=== PATIENT | female | born 1960 | race African-American/Black ===

== ENCOUNTER 2016-11-25 20:00 | Emergency (ER) | payer OTHER ==
[2016-11-25 20:08] VITALS: BMI 37.1
[2016-11-25] MEDS ORDERED: SODIUM CHLORIDE 1,000 ML IV STA (20:49)
[2016-11-25] MEDS ORDERED: ONDANSETRON 4 MG/2 ML VIAL IVPUSH ONE (20:49)
[2016-11-25] MEDS ORDERED: morphine CARPU-JECT 4 MG/1 ML DISP.SYRIN IVPUSH ONE (20:49)
[2016-11-25] MEDS ORDERED: ONDANSETRON 4 MG/2 ML VIAL ONE (20:58)
[2016-11-25] MEDS ORDERED: morphine CARPU-JECT 4 MG/1 ML DISP.SYRIN ONE (20:58)
--- NOTE | 2016-11-25 21:21 | PDOC ---
History of Present Illness - General Chief Complaint: Pain Stated Complaint: PCP SENT/PAIN, ACUTE Time Seen by Provider: 11/25/16 20:37 History Source: Patient Exam Limitations: No Limitations - History of Present Illness Initial Comments: 11/25/16 21:02 56yo Female patient w/ PmHx: DVT, DM, Hypothyroidism, Gout, HTN, presents to ED c/o chest pain and abdominal pain. Patient states this past Wednesday, she attending her sons wedding, and while exiting an elevator, she was walking on a marble floor, slipped and landed on her back. Patient was transported to a local hospital where x-ray's were taken and negative for fractures. Patient states she was diagnosed with contusions of hip and back. Patient followed up with Dr. Redmond, who is concerned with Liver or Splenic laceration due to continued abdominal and chest pains patient is experiencing. Patient currently takes Coumadin po for hx DVTs. She denies diff breathing, weakness, n/v/d, confusion, disorientation, hematuria, dysuria, rectal bleeding or any other complaints at this time. Occurred: reports: other (3 days ago.) Severity: reports: moderate Pain Location: reports: abdomen, back, chest Method of Injury: Yes: fall Modifying Factors: improves with: pain medication, rest Loss of Consciousness: no loss of consciousness Associated Symptoms (Fall): denies symptoms Past History - Travel Traveled outside of the country in the last 30 days: No Close contact w/someone who was outside of country & ill: No - Past Medical History Allergies/Adverse Reactions: Allergies Allergy/AdvReac Type Severity Reaction Status Date / Time No Known Allergies Allergy Verified 11/25/16 20:08 Home Medications: Ambulatory Orders Allopurinol [Zyloprim -] 100 mg PO DAILY 07/04/15 Cholecalciferol (Vitamin D3) [Vitamin D3] 1,000 unit PO DAILY 07/04/15 Levothyroxine [Synthroid -] 125 mcg PO DAILY 07/04/15 Lisinopril [Prinivil -] 20 mg PO DAILY 07/04/15 Metformin HCl [Metformin HCl ER] 500 mg PO DAILY 07/04/15 Nebivolol HCl [Bystolic] 10 mg PO DAILY 07/04/15 Sitagliptin Phosphate [Januvia] 100 mg PO DAILY 07/04/15 Warfarin Na [Coumadin -] 5 mg PO DAILY 07/04/15 Anemia: No Asthma: No Cancer: No Cardiac Disorders: Yes CVA: No COPD: Yes CHF: No DVT: Yes Dementia: No Diabetes: Yes GI Disorders: Yes (DIVERTICULITIS) Disorders: No HTN: Yes Hypercholesterolemia: Yes Liver Disease: No Seizures: No Thyroid Disease: Yes (HYPOTHYROID) Lung CA: No (BI-LATERAL LUNG NODULES) Other medical history: gout, dvt - Surgical History Abdominal Surgery: No Appendectomy: No Cardiac Surgery: No Cholecystectomy: No Lung Surgery: (BILAT LUNG NODULES) Neurologic Surgery: No Orthopedic Surgery: No - Immunization History Immunization Up to Date: Yes - Psycho/Social/Smoking Cessation Hx Suicidal Ideation: No Smoking History: Never smoked Have you smoked in the past 12 months: No If you are a former smoker, when did you quit?: 30+ years Hx Alcohol Use: Yes (occasional) Drug/Substance Use Hx: No Substance Use Type: None Hx Substance Use Treatment: No Trauma Specific PMHX - Complaint Specific PMHX Arthritis: No Back Injury: No Neck Injury: No Hx Sacro Iliac Joint Dysfunction: No Review of Systems - Review of Systems Able to Perform ROS?: Yes Is the patient limited Iraqi proficient: No Constitutional: No: Chills, Fever Respiratory: No: Shortness of Breath, Stridor, Wheezing Cardiac (ROS): Yes: Chest Pain. No: Lightheadedness, Palpitations, Syncope, Chest Tightness ABD/GI: Yes: Other (Abdominal Pain RUQ ). No: Abdominal Distended, Nausea, Poor Appetite, Poor Fluid Intake, Rectal Bleeding, Vomiting, Abdominal cramping : No: Dysuria, Hematuria Musculoskeletal: Yes: Back Pain, Joint Pain Integumentary: No: Bruising, Erythema, Rash Neurological: No: Headache, Tremors, Weakness, Dizziness Hematologic/Lymphatic: Yes: Blood Clots, Easy Bleeding (On Coumadin) All Other Systems: Reviewed and Negative *Physical Exam - Vital Signs Last Vital Signs Temp Pulse Resp BP Pulse Ox 98.7 F 57 L 18 184/87 98 11/25/16 20:02 11/25/16 20:02 11/25/16 20:02 11/25/16 20:02 11/25/16 20:02 - Physical Exam General Appearance: Yes: Nourished, Appropriately Dressed, Mild Distress. No: Apparent Distress, Moderate Distress, Severe Distress Neck: positive: Trachea midline, Supple. negative: Normal Thyroid, Stridor, Lymphadenopathy (R), Lymphadenopathy (L) Respiratory/Chest: positive: Lungs Clear, Normal Breath Sounds. negative: Chest Tender, Respiratory Distress, Accessory Muscle Use, Labored Respiration, Rapid RR, Crackles, Stridor, Wheezing Cardiovascular: positive: Bradycardia Gastrointestinal/Abdominal: positive: Normal Bowel Sounds, Tender, Soft, Tenderness (+Tenderness to RUQ radiating to LUQ). negative: Distended, Guarding , Rebound Musculoskeletal: positive: Normal Inspection. negative: CVA Tenderness Extremity: positive: Normal Capillary Refill, Normal Inspection, Normal Range of Motion. negative: Pedal Edema, Swelling, Calf Tenderness, Erythema, Inflammation Integumentary: positive: Normal Color, Dry, Warm Neurologic: positive: home care attendant II-XII NML intact, Fully Oriented, Alert, Normal Mood/ Affect, Normal Response, Motor Strength 09/25 ED Treatment Course - LABORATORY CBC & Chemistry Diagram: 11/25/16 21:20 11/25/16 23:39 - RADIOLOGY Radiology Studies Ordered: Category Date Time Status ABDOMEN & PELVIS CT WITH CONTR [CT] Stat CT Scan 11/25/16 20:[address] WITH CONTRAST [CT] Stat CT Scan 11/25/16 20:46 Ordered *DC/Admit/Observation/Transfer Diagnosis at time of Disposition: Musculoskeletal pain Fall Qualifiers: Encounter type: initial encounter Qualified Code(s): W19.XXXA - Unspecified fall, initial encounter - Discharge Dispostion Disposition: HOME Condition at time of disposition: Stable Admit: No - Referrals Referrals: Mehdi Redmond MD [Primary Care Provider] - - Patient Instructions Printed Discharge Instructions: DI for Musculoskeletal Pain, How to Prevent Falls Additional Instructions: FOLLOW UP WITH DR. Redmond. Call to schedule appointment. Continue taking Over the counter medications as ordered. Return if symptoms worsen or any concerns for further evaluation. Print Language: BURKINAN - Post Discharge Activity Work/School Note: Back to Work
[2016-11-25 21:28] LABS: BASOPHIL 0.9 % (0-2.0); EOSINOPHIL 2.4 % (0-4.5); MCH 25.9 pg (25.7-33.7); MCHC 32.5 g/dl (32.0-36.0); MEAN CELL VOLUME 79.9 fl (80-96); MEAN PLT VOLUME 7.6 fl (7.5-11.1); NEUTROPHILS 48.7 % (42.8-82.8); PLATELET COUNT 234 K/MM3 (134-434); WHITE BLOOD COUNT 6.8 K/mm3 (4.0-10.0)
[2016-11-25] MEDS ORDERED: ACETAMINOPHEN 325 MG TABLET (FP) PO ONE (21:37)
--- NOTE | 2016-11-25 21:43 | PDOC ---
*Physical Exam - Vital Signs Last Vital Signs Temp Pulse Resp BP Pulse Ox 98.7 F 57 L 18 184/87 98 11/25/16 20:02 11/25/16 20:02 11/25/16 20:02 11/25/16 20:02 11/25/16 20:02 ED Treatment Course - LABORATORY CBC & Chemistry Diagram: 11/25/16 21:20 11/25/16 23:39 - ADDITIONAL ORDERS Additional order review: Laboratory Results 11/25/16 21:35 Urine HCG, Qual Negative 11/25/16 21:20 RBC 4.97 MCV 79.9 L MCHC 32.5 RDW 16.0 H MPV 7.6 Neutrophils % 48.7 Lymphocytes % 39.2 Monocytes % 8.8 Eosinophils % 2.4 Basophils % 0.9 - Medications Given in the ED: ED Medications Discontinued Medications Generic Name Dose Route Start Last Admin Trade Name Freq PRN Reason Stop Dose Admin Morphine Sulfate 4 mg 11/25/16 20:49 11/25/16 21:19 Morphine Injection - IVPUSH 11/25/16 20:50 Not Given ONCE ONE Ondansetron HCl 4 mg 11/25/16 20:49 11/25/16 21:19 Zofran Injection IVPUSH 11/25/16 20:50 Not Given ONCE ONE Medical Decision Making - Medical Decision Making 11/25/16 21:43 agree with care from JI Parker *DC/Admit/Observation/Transfer Diagnosis at time of Disposition: Musculoskeletal pain, Fall - Discharge Dispostion Disposition: HOME Condition at time of disposition: Stable - Prescriptions Prescriptions: Methocarbamol [Robaxin -] 500 mg PO TID PRN #21 tablet PRN Reason: Back Pain - Referrals Referrals: Mehdi Redmond MD [Primary Care Provider] - - Patient Instructions Printed Discharge Instructions: How to Prevent Falls, DI for Musculoskeletal Pain Additional Instructions: FOLLOW UP WITH DR. Redmond. Call to schedule appointment. Continue taking Over the counter medications as ordered. Return if symptoms worsen or any concerns for further evaluation. Print Language: SERBIAN - Post Discharge Activity Work/School Note: Back to Work
[2016-11-25] MEDS ORDERED: ACETAMINOPHEN 325 MG TABLET (FP) ONE (21:45)
[2016-11-25 22:19] LABS: INR 2.39 (0.82-1.09); PROTHROMBIN TIME (PATIENT) 26.8 SEC (9.98-11.88)
[2016-11-25 22:22] LABS: ACTIVATED PTT 50.1 SECONDS (26.9-34.4)
[2016-11-25 22:24] LABS: URINE APPEARANCE SLCLOUDY; URINE BILIRUBIN NEGATIVE (NEGATIVE); URINE BLOOD NEGATIVE (NEGATIVE); URINE COLOR LTYELLOW; URINE GLUCOSE (UA) NEGATIVE (NEGATIVE); URINE KETONE NEGATIVE (NEGATIVE); URINE LEUK ESTERASE TRACE (NEGATIVE); URINE NITRITE NEGATIVE (NEGATIVE); URINE PROTEIN NEGATIVE (NEGATIVE); URINE UROBILINOGEN NEGATIVE E.U./dl (0.2-1.0)
[2016-11-25 22:26] LABS: URINE BACTERIA MANY /hpf (NONE SEEN); URINE MUCUS RARE; URINE RBC <1 /hpf (0-3); URINE WBC 2 /hpf (3-5)
[2016-11-26 00:22] LABS: ALBUMIN 3.8 g/dl (3.4-5.0); ALK PHOS 99 U/L (45-117); ANION GAP 8 (8-16); BILIRUBIN,TOTAL 0.4 mg/dL (0.2-1.0); CALCIUM 8.7 mg/dL (8.5-10.1); CO2 28 mmol/L (21-32); CREATININE 0.6 mg/dL (0.55-1.02); GLUCOSE,RANDOM 122 mg/dL (74-106); SGOT/AST 26 U/L (15-37); SGPT/ALT 36 U/L (12-78); TOT PROT 7.2 g/dl (6.4-8.2)
[2016-11-26 01:04] LABS: TROPONIN I < 0.02 ng/ml (0.00-0.05)
[2016-11-26 05:09] VITALS: BP 152/71; PULSE 76; TEMP 98.2
== END 2016-11-26 05:09 | disposition home or self-care (01) ==
LOC: JER 20:00
PROC: 3E0337Z Introduction of Electrolytic and Water Balance Substance into Peripheral Vein, Percutaneous Approach (ICD-10-PCS; principal; 2016-11-25)
DX: M79.1 Myalgia (principal); W01.0XXA Fall on same level from slipping, tripping and stumbling without subsequent striking against object, initial encounter; Y93.01 Activity, walking, marching and hiking; Y92.511 Restaurant or cafe as the place of occurrence of the external cause; E11.9 Type 2 diabetes mellitus without complications; E03.9 Hypothyroidism, unspecified; M10.9 Gout, unspecified; I10 Essential (primary) hypertension; I82.409 Acute embolism and thrombosis of unspecified deep veins of unspecified lower extremity; Z79.01 Long term (current) use of anticoagulants; Z79.84 Long term (current) use of oral hypoglycemic drugs
CPT/HCPCS: 36415; 71260-TC; 74177-TC; 80053; 81003; 81015; 82550; 82553; 84484; 84703; 85025; 85610; 85730; 99283-25

== ENCOUNTER 2017-04-26 16:19 | Emergency (ER) | payer OTHER ==
--- NOTE | 2017-04-26 16:24 | PDOC ---
Rapid Medical Evaluation Time Seen by Provider: 04/26/17 16:20 Medical Evaluation: Allergies Allergy/AdvReac Type Severity Reaction Status Date / Time No Known Allergies Allergy Verified 11/25/16 20:08 04/26/17 16:21 I have performed a brief in person evaluation of this patient. The patient presents with chief complaint of : left side chest discomfort started this am constant worse with movement, pt takes coumadin for DVT 3yrs ago. DM, HTN, hyperthyroid , Gout , partial hysterectomy, Pertinent PE findings: pain to left side under axila and breast reproduced with leaning forward and with movement I have ordered the following: EKG, labs, The patient will proceed to the ER for further evaluation.
[2017-04-26 16:28] VITALS: BP 204/111; PULSE 70; TEMP 98; BMI 37.1
[2017-04-26 17:16] LABS: BASOPHIL 0.6 % (0-2.0); EOSINOPHIL 2.4 % (0-4.5); MCH 26.6 pg (25.7-33.7); MCHC 32.9 g/dl (32.0-36.0); MEAN CELL VOLUME 80.9 fl (80-96); MEAN PLT VOLUME 7.8 fl (7.5-11.1); NEUTROPHILS 45.7 % (42.8-82.8); PLATELET COUNT 268 K/MM3 (134-434); RDW 15.3 % (11.6-15.6)
[2017-04-26] MEDS ORDERED: ACETAMINOPHEN 500 MG TABLET (FP) PO STA (17:23)
--- NOTE | 2017-04-26 17:23 | PDOC ---
History of Present Illness - General History Source: Patient Exam Limitations: No Limitations <Jaida Cardozo - Last Filed: 04/26/17 17:43> <Jessica Cabezas - Last Filed: 04/28/17 01:09> - General Chief Complaint: Chest Pain Stated Complaint: CHEST PAIN Time Seen by Provider: 04/26/17 16:20 - History of Present Illness Initial Comments: 04/26/17 17:43 The patient is a 57 year old female, with a significant past medical history of HTN, HLD, Hypothyroidism, Gout, hx of DVT (on Coumadin), Diverticulitis who presents to the emergency department with chest pain today. Patient reports routine INR check this morning at [facility] when she experienced sudden onset of chest pain this morning. Patient reports L sided substernal chest pain, 6/10 in severity, squeezing and achy, nonradiating with no associated symptoms. Patient reports pain is exacerbated upon positional changes however denies any alleviating factors. Patient reports taking tylenol however denies any relief. Patient also notes receiving PRP shots on her L side for her torn labrum. Patient denies headache or dizziness. Patient denies fever, chills, abdominal pain, nausea, vomit, diarrhea or constipation. Patient denies dysuria, frequency , urgency or hematuria. Patient denies sick contacts or recent travel. Allergies: NKA Past surgical history: Partial hysterectomy. Partial thyroidectomy, Lung nodule removal Social history: Former smoker Hem/Onc: Garth Endo: Nyla (Jaida Cardozo) Past History <Jaida Cardozo - Last Filed: 04/26/17 17:43> - Past Medical History Anemia: No Asthma: No Cancer: No Cardiac Disorders: Yes CVA: No COPD: Yes CHF: No DVT: Yes Dementia: No Diabetes: Yes GI Disorders: Yes (DIVERTICULITIS) Disorders: No HTN: Yes Hypercholesterolemia: Yes Liver Disease: No Seizures: No Thyroid Disease: Yes (HYPOTHYROID) Lung CA: (BI-LATERAL LUNG NODULES) Other medical history: GOUT - Surgical History Abdominal Surgery: No Appendectomy: No Cardiac Surgery: No Cholecystectomy: No Lung Surgery: (BILAT LUNG NODULES) Neurologic Surgery: No Orthopedic Surgery: No - Immunization History Immunization Up to Date: Yes - Suicide/Smoking/Psychosocial Hx Smoking History: Former smoker Have you smoked in the past 12 months: No If you are a former smoker, when did you quit?: 30+ years Information on smoking cessation initiated: No Hx Alcohol Use: Yes (occasional) Drug/Substance Use Hx: No Substance Use Type: None Hx Substance Use Treatment: No <Jessica Cabezas - Last Filed: 04/28/17 01:09> - Past Medical History Allergies/Adverse Reactions: Allergies Allergy/AdvReac Type Severity Reaction Status Date / Time No Known Allergies Allergy Verified 04/26/17 16:21 Home Medications: Ambulatory Orders Allopurinol [Zyloprim -] 100 mg PO DAILY 07/04/15 Cholecalciferol (Vitamin D3) [Vitamin D3] 1,000 unit PO DAILY 07/04/15 Levothyroxine [Synthroid -] 125 mcg PO DAILY 07/04/15 Lisinopril [Prinivil -] 20 mg PO DAILY 07/04/15 Metformin HCl [Metformin HCl ER] 500 mg PO DAILY 07/04/15 Nebivolol HCl [Bystolic] 10 mg PO DAILY 07/04/15 Sitagliptin Phosphate [Januvia] 100 mg PO DAILY 07/04/15 Warfarin Na [Coumadin -] 5 mg PO DAILY 07/04/15 Methocarbamol [Robaxin -] 500 mg PO TID PRN #21 tablet 11/26/16 Cardiac Specific PMH - Complaint Specific PMHX Pacemaker: No <Jessica Cabezas - Last Filed: 04/28/17 01:09> Review of Systems - Review of Systems Able to Perform ROS?: Yes <Jaida Cardozo - Last Filed: 04/26/17 17:43> <Jessica Cabezas - Last Filed: 04/28/17 01:09> - Review of Systems Comments:: 04/26/17 17:43 CONSTITUTIONAL: Absent: fever, chills, diaphoresis, generalized weakness, malaise, loss of appetite HEENT: Absent: rhinorrhea, nasal congestion, throat pain, throat swelling, difficulty swallowing, mouth swelling, ear pain, eye pain, visual Changes CARDIOVASCULAR: +chest pain. Absent: chest pain, syncope, palpitations, irregular heart rate, lightheadedness , peripheral edema RESPIRATORY: Absent: cough, shortness of breath, dyspnea with exertion, orthopnea, wheezing, stridor, hemoptysis GASTROINTESTINAL: Absent: abdominal pain, abdominal distension, nausea, vomiting, diarrhea, constipation, melena, hematochezia GENITOURINARY: Absent: dysuria, frequency, urgency, hesitancy, hematuria, flank pain, genital pain MUSCULOSKELETAL: Absent: myalgia, arthralgia, joint swelling SKIN: Absent: rash, itching, pallor HEMATOLOGIC/IMMUNOLOGIC: Absent: easy bleeding, easy bruising, lymphadenopathy, frequent infections ENDOCRINE: Absent: unexplained weight gain, unexplained weight loss, heat intolerance, cold intolerance NEUROLOGIC: Absent: headache, focal weakness or paresthesias, dizziness, unsteady gait, seizure, mental status changes, bladder or bowel incontinence PSYCHIATRIC: Absent: anxiety, depression, suicidal or homicidal ideation, hallucinations. (Jaida Cardozo) *Physical Exam <Jaida Cardozo - Last Filed: 04/26/17 17:43> <Jessica Cabezas - Last Filed: 04/28/17 01:09> - Vital Signs Last Vital Signs Temp Pulse Resp BP Pulse Ox 98 F 70 19 204/111 96 04/26/17 16:21 04/26/17 16:21 04/26/17 16:21 04/26/17 16:21 04/26/17 17:55 - Physical Exam Comments: 04/26/17 17:43 GENERAL: +Obese. Well developed, well nourished. Awake and alert. No acute distress. HEENT: Normocephalic, atraumatic. PERRLA, EOMI. No conjunctival pallor. Sclera are non- icteric. Moist mucous membranes. Oropharynx is clear. NECK: Supple. Full ROM. No JVD. Carotid pulses 2+ and symmetric, without bruits. No thyromegaly. No lymphadenopathy. CARDIOVASCULAR: Regular rate and rhythm. No murmurs, rubs, or gallops. Distal pulses are 2+ and symmetric. PULMONARY: No evidence of respiratory distress. Lungs clear to auscultation bilaterally. No wheezing, rales or rhonchi. ABDOMINAL: Soft. Non-tender. Non-distended. No rebound or guarding. No organomegaly. Normoactive bowel sounds. MUSCULOSKELETAL Normal range of motion at all joints. No bony deformities or tenderness. No CVA tenderness. EXTREMITIES: No cyanosis. No clubbing. No edema. No calf tenderness. SKIN: Warm and dry. Normal capillary refill. No rashes. No jaundice. NEUROLOGICAL: Alert, awake, appropriate. Cranial nerves 2-12 intact. No deficits to light touch and temperature in face, upper extremities and lower extremities. No motor deficits in the in face, upper extremities and lower extremities. Normoreflexic in the upper and lower extremities. Normal speech. Toes are down-going bilaterally. Gait is normal without ataxia. PSYCHIATRIC: Cooperative. Good eye contact. Appropriate mood and affect. (Jaida Cardozo) ED Treatment Course - LABORATORY CBC & Chemistry Diagram: 04/26/17 17:02 04/26/17 17:02 <Jaida Cardozo - Last Filed: 04/26/17 17:43> - LABORATORY CBC & Chemistry Diagram: 04/26/17 17:02 04/26/17 Unknown <Jessica Cabezas - Last Filed: 04/28/17 01:09> - ADDITIONAL ORDERS Additional order review: 04/26/17 17:02 RBC 5.17 MCV 80.9 MCHC 32.9 RDW 15.3 MPV 7.8 Neutrophils % 45.7 Lymphocytes % 41.1 H Monocytes % 10.2 Eosinophils % 2.4 Basophils % 0.6 - Medications Given in the ED: ED Medications Discontinued Medications Generic Name Dose Route Start Last Admin Trade Name Freq PRN Reason Stop Dose Admin Acetaminophen 975 mg 04/26/17 17:23 04/26/17 17:47 Tylenol - PO 04/26/17 17:24 975 mg ONCE STA Administration Medical Decision Making <Jaida Cardozo - Last Filed: 04/26/17 17:43> <Jessica Cabezas - Last Filed: 04/28/17 01:09> - Medical Decision Making 04/28/17 01:07 57 yo female was getting her blood drawn at outpt lab in hospital when she told someone she was having left sided chest discomfort that increased w mvmt -ekg did not show any acute ischemia -she has 2 sets of negative cardiac enzymes -discharged home (Jessica Cabezas) *DC/Admit/Observation/Transfer <Jaida Cardozo - Last Filed: 04/26/17 17:43> <Jessica Cabezas - Last Filed: 04/28/17 01:09> Diagnosis at time of Disposition: Chest pain Qualifiers: Chest pain type: unspecified Qualified Code(s): R07.9 - Chest pain, unspecified - Discharge Dispostion Disposition: HOME Condition at time of disposition: Stable - Referrals Referrals: Mehdi Redmond MD [Primary Care Provider] - - Patient Instructions Printed Discharge Instructions: DI for Atypical Chest Pain Additional Instructions: please follow up with your regular physician - Attestations Scribe Attestion: 04/26/17 17:44 Documentation prepared by Jaida Cardozo, acting as medical front desk coordinator for Jessica Cabezas MD (Jaida Cardozo)
[2017-04-26] MEDS ORDERED: ACETAMINOPHEN 325 MG TABLET (FP) ONE (17:47)
[2017-04-26 19:07] LABS: INR 2.28 (0.82-1.09); PROTHROMBIN TIME (PATIENT) 25.8 SEC (9.98-11.88)
[2017-04-26 19:21] LABS: ALBUMIN 4.1 g/dl (3.4-5.0); ANION GAP 8 (8-16); BILIRUBIN,TOTAL 0.2 mg/dL (0.2-1.0); CALCIUM 9.4 mg/dL (8.5-10.1); CO2 29 mmol/L (21-32); CREATININE 0.7 mg/dL (0.55-1.02); GLUCOSE,RANDOM 86 mg/dL (74-106); SGOT/AST 18 U/L (15-37); SGPT/ALT 32 U/L (12-78); TOT PROT 7.9 g/dl (6.4-8.2)
[2017-04-26 19:24] LABS: ALK PHOS 111 U/L (45-117); CPK 140 IU/L (26-192); TROPONIN I < 0.02 ng/ml (0.00-0.05)
[2017-04-26 23:46] LABS: CPK 135 IU/L (26-192); TROPONIN I < 0.02 ng/ml (0.00-0.05)
--- NOTE | 2017-04-28 07:54 | EKG ---
Test Reason : Blood Pressure : / mmHG Vent. Rate : 056 BPM Atrial Rate : 056 BPM P-R Int : 204 ms QRS Dur : 090 ms QT Int : 398 ms P-R-T Axes : 060 017 004 degrees QTc Int : 384 ms SINUS BRADYCARDIA OTHERWISE NORMAL ECG WHEN COMPARED WITH ECG OF 04-JUL-2015 16:30, VENT. RATE HAS DECREASED BY 33 BPM Confirmed by MD Funes Daniel ([id number]) on 04/27/2017 2:57:48 PM Also confirmed by MD Funes Daniel ([id number]), news editor ALEXANDRIA MATAMOROS ([id number]) on 04/28/2017 7:53:50 AM Referred By: Confirmed By:Alexandria Funes MD
== END 2017-04-27 01:52 | disposition home or self-care (01) ==
LOC: JER 16:19
DX: R07.9 Chest pain, unspecified (principal); E03.9 Hypothyroidism, unspecified; I10 Essential (primary) hypertension; E78.5 Hyperlipidemia, unspecified; Z86.718 Personal history of other venous thrombosis and embolism; Z79.01 Long term (current) use of anticoagulants
CPT/HCPCS: 36415; 71020-TC; 80053; 82550; 84484; 85025; 85610; 86850; 86900; 86901; 93005; 93010; 99285-25

== ENCOUNTER 2018-06-08 15:44 | Emergency (ER) | payer OTHER ==
[2018-06-08 16:03] VITALS: BP 140/84; PULSE 61; TEMP 98.1; BMI 37.1
--- NOTE | 2018-06-08 16:04 | PDOC ---
Rapid Medical Evaluation Chief Complaint: Pain Medical Evaluation: Allergies Allergy/AdvReac Type Severity Reaction Status Date / Time No Known Allergies Allergy Verified 04/26/17 16:21 Vital Signs Temp Pulse Resp BP Pulse Ox 98.1 F 61 16 140/84 100 06/08/18 15:59 06/08/18 15:59 06/08/18 15:59 06/08/18 15:59 06/08/18 15:59 I have performed a brief in-person evaluation of this patient. The patient presents with a chief complaint of: c/o dull/aching epigastric pain from 3 days ago; denies fever, vomiting, diarrhea, urinary complaints Pertinent physical exam findings: In NAD, mild epigastric tenderness I have ordered the following: Labs, EKG The patient will proceed to the ED for further evaluation. 06/08/18 16:03 Discharge Disposition - Discharge Dispostion Condition at time of disposition: Stable - Referrals Referrals: Mehdi Redmond MD [Primary Care Provider] - - Patient Instructions - Post Discharge Activity
--- NOTE | 2018-06-08 17:16 | PDOC ---
Attending Attestation - Resident Resident Name: CharissaDat - ED Attending Attestation I have performed the following: I have examined & evaluated the patient, The case was reviewed & discussed with the resident, I agree w/resident's findings & plan, Exceptions are as noted - Medical Decision Making 06/08/18 17:15 I, Dr. Cori Martinez, DO, attest that this document has been prepared under my direction and personally reviewed by me in its entirety. I further attest, that it accurately reflects all work, treatment, procedures and medical decision -making performed by me. 06/08/18 18:45 58yo female with 4 days of diffuse abd pain -no associated N/V/D -denies dysuria -sent from Dr. Redmond for eval -hx of gallbladder polyps -no f/c -will send labs -abd is diffusely ttp, will send for ct abd/pelvis -tylenol for pain 06/08/18 19:04 labs reviewed no elevated wbc pt to ct 06/08/18 20:28 ct shows possible duodenitis vs thickening concerning for neoplastic disease pt will need outpt GI follow up will start PPI for duodenitis will give copy of CT report call placed to Dr. Redmond to update him pt stable for outpt follow up for furhter eval of the abnl ct findings <Cori Martinez - Last Filed: 06/08/18 20:28> - HPI HPI: This patient is a 58 year old female, with PMHx of DM, HTN, hypothyroidism, DVT s (on coumadin 2.34 last INR on 10mg daily), and gout who presents with days of abdominal pain. She describes it as sudden onset, located in epigastric/ periumbilical/RUQ, diffuse, crampy, intermittent, rates 10/10. Patient states that she saw Dr. Tavera who did an abdominal US and referred her to the ER for further evaluation. She states that she hasnt taken anything for the pain and currently her abdominal pain is a 6/10. Patient mentioned she was told she has polyps in her gallbladder, but has not had a cholecystectomy. Denies any recent nausea, vomiting, fever chills, chest pain, shortness of breath, diarrhea, dysuria, hematuria, or hematochezia. Surgical Hx: Total hysterectomy (cervix intact) [place] Tower Loader: Dr. Smith PCP: Dr. Mehdi Tavera [facility] Hx: No tobacco, alcohol, or illicit drug use. - Physicial Exam PE: GENERAL: Awake, alert, and fully oriented, in no acute distress HEAD: No signs of trauma EYES: PERRLA, EOMI, sclera anicteric, conjunctiva clear LUNGS: Breath sounds equal, clear to auscultation bilaterally. No wheezes, and no crackles HEART: Regular rate and rhythm, , no murmurs, rubs or gallops ABDOMEN: Soft, diffusely tender in RUQ, epigatric, LLQ, supra pubic, normoactive bowel sounds. No guarding, no rebound. No masses EXTREMITIES: Normal range of motion, no edema. No clubbing or cyanosis. No cords, erythema, or tenderness NEUROLOGICAL: Normal speech, normal gait SKIN: Warm, Dry, normal turgor, no rashes or lesions noted. <Audelia Curtis - Last Filed: 06/08/18 20:32> Heart Score/ECG Review - ECG Intrepretation Comment:: 06/08/18 17:47 sinus pedro at 56, t wave flattening diffusely, nl axis, no acute st/t wave findings <Cori Martinez - Last Filed: 06/08/18 20:28>
--- NOTE | 2018-06-08 17:43 | PDOC ---
History of Present Illness - General Chief Complaint: Pain Stated Complaint: STOMACH PAIN Time Seen by Provider: 06/08/18 17:13 History Source: Patient Exam Limitations: No Limitations - History of Present Illness Initial Comments: 06/08/18 17:37 58 yo F with a hx of DVT (on coumadin, last INR 2.3 last week 10 mg daily), DM, HTN, hypothyroidism, and gout presents to the emergency department with sudden onset of generalized abdominal pain that began 3 days ago. Located throughout abdomen with most painful points in periumbicilical, RUQ, and epigastric region. Described as 10/10, cramping, radiating throughout, and comes and goes. Has not used medications for relief. Currently pain is 6/10. Denies the following: fever, chills, nausea, vomiting, chest pain, SOB, back pain, dysuria , hematuria, hematochezia, diarrhea, and leg pain/swelling. No recent travels. Pmhx: Refer to above Shx: hysterectomy Meds: coumadin, lisinopril, metformin, bistolic, allopurinol, levothyroxine, Allergies: NKDA Social: Denies tobacco, alcohol, and substance abuse. Past History - Past Medical History Allergies/Adverse Reactions: Allergies Allergy/AdvReac Type Severity Reaction Status Date / Time No Known Allergies Allergy Verified 04/26/17 16:21 Home Medications: Ambulatory Orders Allopurinol [Zyloprim -] 100 mg PO DAILY 07/04/15 Levothyroxine [Synthroid -] 125 mcg PO DAILY 07/04/15 Lisinopril [Prinivil -] 20 mg PO BID 07/04/15 Nebivolol HCl [Bystolic] 10 mg PO DAILY 07/04/15 Sitagliptin Phosphate [Januvia] 100 mg PO DAILY 07/04/15 Warfarin Na [Coumadin -] 10 mg PO DAILY 07/04/15 metFORMIN HCL [Metformin ER Osmotic] 500 mg PO DAILY 07/04/15 Methocarbamol [Robaxin -] 500 mg PO TID PRN #21 tablet 11/26/16 Famotidine 20 mg PO BID #16 tablet 06/08/18 Anemia: No Asthma: No Cancer: No Cardiac Disorders: Yes CVA: No COPD: Yes CHF: No DVT: Yes Dementia: No Diabetes: Yes GI Disorders: Yes (DIVERTICULITIS) Disorders: No HTN: Yes Hypercholesterolemia: Yes Liver Disease: No Seizures: No Thyroid Disease: Yes (HYPOTHYROID) Lung CA: (BI-LATERAL LUNG NODULES) - Surgical History Abdominal Surgery: No Appendectomy: No Cardiac Surgery: No Cholecystectomy: No Lung Surgery: (BILAT LUNG NODULES) Neurologic Surgery: No Orthopedic Surgery: No - Immunization History Immunization Up to Date: Yes - Suicide/Smoking/Psychosocial Hx Smoking History: Never smoked Have you smoked in the past 12 months: No If you are a former smoker, when did you quit?: 30+ years Information on smoking cessation initiated: No Hx Alcohol Use: No Drug/Substance Use Hx: No Substance Use Type: None Hx Substance Use Treatment: No Review of Systems - Review of Systems Able to Perform ROS?: Yes Is the patient limited [place] proficient: No Constitutional: No: Chills, Diaphoresis, Fever, Weakness HEENTM: No: Eye Pain, Recent change in vision, Ear Pain, Nose Pain, Throat Pain , Mouth Pain Respiratory: No: Cough, Shortness of Breath, SOB with Exertion, Hemoptysis Cardiac (ROS): No: Chest Pain, Lightheadedness, Palpitations, Syncope, Chest Tightness ABD/GI: Yes: Abdominal cramping. No: Constipated, Diarrhea, Nausea, Poor Appetite, Poor Fluid Intake, Rectal Bleeding, Vomiting, Tarry Stools : No: Burning, Dysuria, Hematuria, Urgency Musculoskeletal: No: Back Pain, Joint Pain, Neck Pain Integumentary: No: Erythema, Flushing, Lesions, Lumps, Pruritus, Rash Neurological: No: Headache, Numbness, Tremors, Ataxia, Dizziness Psychiatric: No: Change in Appetite Endocrine: No: Unexplained Weight Gain Hematologic/Lymphatic: No: Anemia *Physical Exam - Vital Signs Last Vital Signs Temp Pulse Resp BP Pulse Ox 98.1 F 61 16 140/84 100 06/08/18 15:59 06/08/18 15:59 06/08/18 15:59 06/08/18 15:59 06/08/18 15:59 - Physical Exam General Appearance: Yes: Nourished, Appropriately Dressed. No: Apparent Distress, Intoxicated HEENT: positive: EOMI, ANTONIETA, Normal Voice, Symmetrical, Pharynx Normal, Hearing Grossly Normal. negative: Pale Conjunctivae, Scleral Icterus (R), Scleral Icterus (L), Muffled/Hoarse voice, Pharyngeal Erythema, Tonsillar Exudate, Tonsillar Erythema, Nasal Congestion, Rhinorrhea, Sinus Tenderness, Excessive drooling Neck: positive: Trachea midline, Supple. negative: Tender, Normal Thyroid ( post surgical scar from thyroidectomy), Decreased range of motion, Lymphadenopathy (R), Lymphadenopathy (L), Tender lateral, Tender midline Respiratory/Chest: positive: Lungs Clear, Normal Breath Sounds. negative: Chest Tender, Respiratory Distress, Accessory Muscle Use, Crackles, Rales, Rhonchi, Stridor, Wheezing, Hyperresonant Cardiovascular: positive: Regular Rhythm, Regular Rate, S1, S2. negative: Systolic Murmur Gastrointestinal/Abdominal: positive: Normal Bowel Sounds, Tender (generalized abdominal tenderness with point of maximal tenderness in the RUQ, epigastric, and periumbilical region. ), Flat, Soft. negative: Guarding, Rebound, Tenderness, Hernia Lymphatic: negative: Adenopathy Musculoskeletal: positive: Normal Inspection. negative: CVA Tenderness, Vertebral Tenderness Extremity: positive: Normal Capillary Refill, Normal Inspection, Normal Range of Motion. negative: Tender, Swelling, Calf Tenderness Integumentary: positive: Normal Color, Dry, Warm. negative: Clammy, Diaphoresis , Rash, Swelling Neurologic: positive: cue selector II-XII NML intact, Fully Oriented, Alert, Normal Mood/ Affect, Normal Response, Motor Strength 5/5. negative: EOM Palsy, Facial Droop , Sensory Deficit Moderate Sedation - Procedure Monitoring Vital Signs: Procedure Monitoring Vital Signs Temperature 98.1 F 06/08/18 15:59 Pulse Rate 61 06/08/18 15:59 Respiratory Rate 16 06/08/18 15:59 Blood Pressure 140/84 06/08/18 15:59 O2 Sat by Pulse Oximetry (%) 100 06/08/18 15:59 ED Treatment Course - LABORATORY CBC & Chemistry Diagram: 06/08/18 18:20 06/08/18 17:10 Medical Decision Making - Medical Decision Making 58 yo F with a hx of DVT (on coumadin, last INR 2.3 last week 10 mg daily), DM, HTN, hypothyroidism, and gout presents to the emergency department with sudden onset of generalized abdominal pain that began 3 days ago. Initial vitals; Initial Vital Signs Temp Pulse Resp BP Pulse Ox 98.1 F 61 16 140/84 100 06/08/18 15:59 06/08/18 15:59 06/08/18 15:59 06/08/18 15:59 06/08/18 15:59 Work up" ddx: wide differential. cholelithiasis, cholecystitis, gastritis, GERD, SBO, diverticulosis/diverticulitis, pancreatitis, viral gastroenteritis ischemic colitis constipation vs hepatitis gastric vs duodenal ulcer uti, pyelo will order abd/pelvis CT with IV contrast Interventions: IVF, tylenol, protonix Laboratory Tests 06/08/18 06/08/18 06/08/18 17:10 17:10 18:20 WBC 7.3 RBC 5.01 Hgb 13.5 Hct 40.7 MCV 81.2 MCH 26.9 MCHC 33.1 RDW 15.2 Plt Count 238 MPV 7.5 Absolute Neuts (auto) 3.8 Neutrophils % 52.6 Lymphocytes % 36.6 Monocytes % 8.1 Eosinophils % 1.7 Basophils % 1.0 Nucleated RBC % 0 Sodium 140 Potassium 3.8 Chloride 104 Carbon Dioxide 27 Anion Gap 9 BUN 12 Creatinine 0.7 Creat Clearance w eGFR > 60 Random Glucose 90 Calcium 9.5 Total Bilirubin 0.2 AST 17 ALT 30 Alkaline Phosphatase 104 Troponin I < 0.02 Total Protein 7.7 Albumin 4.3 Lipase 234 Urine Color Urine Appearance Urine pH Ur Specific [place] Urine Protein Urine Glucose (UA) Urine Ketones Urine Blood Urine Nitrite Urine Bilirubin Urine Urobilinogen Ur Leukocyte Esterase 06/08/18 18:20 WBC RBC Hgb Hct MCV MCH MCHC RDW Plt Count MPV Absolute Neuts (auto) Neutrophils % Lymphocytes % Monocytes % Eosinophils % Basophils % Nucleated RBC % Sodium Potassium Chloride Carbon Dioxide Anion Gap BUN Creatinine Creat Clearance w eGFR Random Glucose Calcium Total Bilirubin AST ALT Alkaline Phosphatase Troponin I Total Protein Albumin Lipase Urine Color Yellow Urine Appearance Slcloudy Urine pH 5.0 Ur Specific [place] 1.019 Urine Protein Negative Urine Glucose (UA) Negative Urine Ketones Negative Urine Blood Negative Urine Nitrite Negative Urine Bilirubin Negative Urine Urobilinogen Negative Ur Leukocyte Esterase Negative labs within normal limits. CT shows smooth wall thickening of the duodenum possibly consistent with duodenitis will need EGD for evaluation. diverticulosis present. patient states she has never had an EGD in the past and does not have a developer programmer analyst. I spoke with her PMD and he agrees with GI follow up. She was referred to Dr. Zheng for follow up care and management. patient understands the plan and agrees to it. At time of discharge, she stated her pain was gone. she was given a copy of her CT report. I discussed the physical exam findings, ancillary test results, and final diagnoses with the patient. I answered all of the patients questions to their satisfaction. The patient was satisfied with the care received and felt comfortable with the discussed discharge and treatment plan and accepted it. They agreed to follow up with the developer programmer analyst within 24-72 hours after discharge for follow up care and management. Dispo: Discharge *DC/Admit/Observation/Transfer Diagnosis at time of Disposition: Abdominal pain Qualifiers: Abdominal location: generalized Qualified Code(s): R10.84 - Generalized abdominal pain - Discharge Dispostion Disposition: HOME Condition at time of disposition: Stable Decision to Admit order: No - Prescriptions Prescriptions: Famotidine 20 mg PO BID #16 tablet - Referrals Referrals: Mehdi Redmond MD [Primary Care Provider] - Idris Zheng DO [Staff Physician] - - Patient Instructions Printed Discharge Instructions: DI for Abdominal Pain-Adult Additional Instructions: you were seen in the emergency department for the evaluation of your abdominal pain, we gave you a report of your CT and your labs were within normal limits. please follow up with the developer programmer analyst referred to you within 3 days after discharge. please follow up with your PMD within 1 week after discharge. please return to the emergency department if you have worsening symptoms or new concerning symptoms such as fevers and chills, uncontrollable nausea and vomiting, and blood in the stool and urine. thank you., - Post Discharge Activity
[2018-06-08] MEDS ORDERED: SODIUM CHLORIDE 1,000 ML IV STA (17:57)
[2018-06-08] MEDS ORDERED: ACETAMINOPHEN 1000 MG/100 ML VIAL (NON FORMULARY) IVPB ONE (17:57)
[2018-06-08 18:02] LABS: ALBUMIN 4.3 g/dl (3.4-5.0); ALK PHOS 104 U/L (45-117); ANION GAP 9 MMOL/L (8-16); BILIRUBIN,TOTAL 0.2 mg/dL (0.2-1); BLOOD UREA NITROGEN 12 mg/dL (7-18); CALCIUM 9.5 mg/dL (8.5-10.1); CHLORIDE 104 mmol/L (98-107); CO2 27 mmol/L (21-32); CREATININE 0.7 mg/dL (0.55-1.3); GLUCOSE,RANDOM 90 mg/dL (74-106); LIPASE 234 U/L (73-393); POTASSIUM 3.8 mmol/L (3.5-5.1); SGOT/AST 17 U/L (15-37); SGPT/ALT 30 U/L (13-61); SODIUM 140 mmol/L (136-145); TOT PROT 7.7 g/dl (6.4-8.2)
[2018-06-08 18:40] LABS: URINE APPEARANCE SLCLOUDY; URINE BILIRUBIN NEGATIVE (<2.0 mg/dL); URINE COLOR YELLOW; URINE GLUCOSE (UA) NEGATIVE (NEGATIVE); URINE KETONE NEGATIVE (NEGATIVE); URINE LEUK ESTERASE NEGATIVE (NEGATIVE); URINE NITRITE NEGATIVE (NEGATIVE); URINE PROTEIN NEGATIVE (NEGATIVE); URINE UROBILINOGEN NEGATIVE mg/dL (0.2-1.0)
[2018-06-08 18:41] LABS: EOS % 1.7 % (0-4.5); HEMATOCRIT 40.7 % (32.4-45.2); HEMOGLOBIN 13.5 GM/dL (10.7-15.3); LYMPH % 36.6 % (8-40); MCH 26.9 pg (25.7-33.7); MCHC 33.1 g/dl (32.0-36.0); MEAN CELL VOLUME 81.2 fl (80-96); MEAN PLT VOLUME 7.5 fl (7.5-11.1); MONO % 8.1 % (3.8-10.2); NEUT % 52.6 % (42.8-82.8); PLATELET COUNT 238 K/MM3 (134-434); RBC 5.01 M/mm3 (3.60-5.2); RDW 15.2 % (11.6-15.6); WHITE BLOOD COUNT 7.3 K/mm3 (4.0-10.0)
[2018-06-08] MEDS ORDERED: ACETAMINOPHEN INJECTION 100 ML IVPB ONE (19:58)
[2018-06-08] MEDS ORDERED: PANTOPRAZOLE SODIUM 40 MG VIAL IVPUSH ONE (20:28)
[2018-06-08] MEDS ORDERED: MAG HYDROX/AL HYDROX/SIMETH 30 ML UNIT-DOSE CUP PO ONE (20:28)
[2018-06-08] MEDS ORDERED: PANTOPRAZOLE SODIUM 40 MG VIAL ONE (20:34)
[2018-06-08] MEDS ORDERED: MAG HYDROX/AL HYDROX/SIMETH 30 ML UNIT-DOSE CUP ONE (20:34)
--- NOTE | 2018-06-09 11:57 | EKG ---
Test Reason : Blood Pressure : / mmHG Vent. Rate : 056 BPM Atrial Rate : 056 BPM P-R Int : 198 ms QRS Dur : 090 ms QT Int : 432 ms P-R-T Axes : 066 039 018 degrees QTc Int : 416 ms SINUS BRADYCARDIA OTHERWISE NORMAL ECG WHEN COMPARED WITH ECG OF 26-APR-2017 16:29, NO SIGNIFICANT CHANGE WAS FOUND Confirmed by GENARO PARIS MD ([id number]) on 06/09/2018 11:57:46 AM Referred By: Confirmed By:GENARO PARIS MD
== END 2018-06-08 22:17 | disposition home or self-care (01) ==
LOC: JER 15:44
PROC: 3E033NZ Introduction of Analgesics, Hypnotics, Sedatives into Peripheral Vein, Percutaneous Approach (ICD-10-PCS; principal; 2018-06-08)
PROC: 3E033GC Introduction of Other Therapeutic Substance into Peripheral Vein, Percutaneous Approach (ICD-10-PCS; 2018-06-08)
PROC: 3E0337Z Introduction of Electrolytic and Water Balance Substance into Peripheral Vein, Percutaneous Approach (ICD-10-PCS; 2018-06-08)
DX: R10.84 Generalized abdominal pain (principal); J44.9 Chronic obstructive pulmonary disease, unspecified; I10 Essential (primary) hypertension; E78.00 Pure hypercholesterolemia, unspecified; E03.9 Hypothyroidism, unspecified; I51.9 Heart disease, unspecified; Z86.718 Personal history of other venous thrombosis and embolism; Z79.01 Long term (current) use of anticoagulants; E11.9 Type 2 diabetes mellitus without complications
CPT/HCPCS: 36415; 74177-TC; 80053; 80061; 80076; 81003; 81015; 82306; 82607; 83036; 83690; 83721; 84436; 84439; 84443; 84479; 84480; 84481; 84484; 85025; 85610; 87086; 93005; 93010; 96361; 96374; 96375; 99283-25; J0131; J7030

== ENCOUNTER 2018-09-29 09:23 | Emergency (ER) | payer OTHER ==
[2018-09-29 10:01] VITALS: BMI 37.4
--- NOTE | 2018-09-29 10:16 | PDOC ---
History of Present Illness - General Chief Complaint: Pain, Acute Stated Complaint: ABD PAIN/ CHILLS Time Seen by Provider: 09/29/18 10:16 Past History - Past Medical History Allergies/Adverse Reactions: Allergies Allergy/AdvReac Type Severity Reaction Status Date / Time No Known Allergies Allergy Verified 09/29/18 10:01 Home Medications: Ambulatory Orders Allopurinol [Zyloprim -] 100 mg PO DAILY 07/04/15 Levothyroxine [Synthroid -] 125 mcg PO DAILY 07/04/15 Lisinopril [Prinivil -] 20 mg PO BID 07/04/15 Nebivolol HCl [Bystolic] 10 mg PO DAILY 07/04/15 Sitagliptin Phosphate [Januvia] 100 mg PO DAILY 07/04/15 Warfarin Na [Coumadin -] 10 mg PO DAILY 07/04/15 metFORMIN HCL [Metformin ER Osmotic] 500 mg PO DAILY 07/04/15 Methocarbamol [Robaxin -] 500 mg PO TID PRN #21 tablet 11/26/16 Famotidine 20 mg PO BID #16 tablet 06/08/18 Famotidine [Pepcid -] 20 mg PO BID #14 tablet 06/09/18 Anemia: No Asthma: No Cancer: No Cardiac Disorders: Yes CVA: No COPD: Yes CHF: No DVT: Yes Dementia: No Diabetes: Yes GI Disorders: Yes (DIVERTICULITIS) Disorders: No HTN: Yes Hypercholesterolemia: Yes Liver Disease: No Seizures: No Thyroid Disease: Yes (HYPOTHYROID) Lung CA: (BI-LATERAL LUNG NODULES) - Surgical History Abdominal Surgery: No Appendectomy: No Cardiac Surgery: No Cholecystectomy: No Lung Surgery: (BILAT LUNG NODULES) Neurologic Surgery: No Orthopedic Surgery: No - Immunization History Immunization Up to Date: Yes - Suicide/Smoking/Psychosocial Hx Smoking History: Former smoker Have you smoked in the past 12 months: No If you are a former smoker, when did you quit?: 35 years ago Information on smoking cessation initiated: No Hx Alcohol Use: No Drug/Substance Use Hx: No Substance Use Type: None Hx Substance Use Treatment: No *Physical Exam - Vital Signs Last Vital Signs Temp Pulse Resp BP Pulse Ox 98.9 F 64 16 166/68 100 09/29/18 09:58 09/29/18 09:58 09/29/18 09:58 09/29/18 09:58 09/29/18 09:58
[2018-09-29 11:31] LABS: BASO % 0.7 % (0-2.0); EOS % 1.9 % (0-4.5); HEMATOCRIT 39.2 % (32.4-45.2); HEMOGLOBIN 12.8 GM/dL (10.7-15.3); LYMPH % 38.1 % (8-40); MCH 26.2 pg (25.7-33.7); MCHC 32.6 g/dl (32.0-36.0); MEAN CELL VOLUME 80.4 fl (80-96); MEAN PLT VOLUME 7.3 fl (7.5-11.1); MONO % 9.4 % (3.8-10.2); NEUT % 49.9 % (42.8-82.8); PLATELET COUNT 278 K/MM3 (134-434); RBC 4.88 M/mm3 (3.60-5.2); RDW 15.3 % (11.6-15.6); WHITE BLOOD COUNT 5.8 K/mm3 (4.0-10.0)
[2018-09-29 12:06] LABS: ALBUMIN 3.6 g/dl (3.4-5.0); BILIRUBIN,TOTAL 0.4 mg/dL (0.2-1); CALCIUM 9.6 mg/dL (8.5-10.1); CREATININE 0.6 mg/dL (0.55-1.3); POTASSIUM 3.9 mmol/L (3.5-5.1); TOT PROT 7.2 g/dl (6.4-8.2)
--- NOTE | 2018-09-29 12:07 | PDOC ---
Documentation entered by Columba Kumari SCRIBE, acting as scribe for Mabel Bermudez MD. Mabel Bermudez MD: This documentation has been prepared by the Kenyetta muñoz Amanda, SCRIBE, under my direction and personally reviewed by me in its entirety. I confirm that the documentation accurately reflects all work, treatment, procedures, and medical decision making performed by me. History of Present Illness - General Chief Complaint: Pain, Acute Stated Complaint: ABD PAIN/ CHILLS Time Seen by Provider: 09/29/18 10:16 History Source: Patient Exam Limitations: No Limitations - History of Present Illness Initial Comments: 09/29/18 10:30 The patient is a 58 year old female, with a significant past medical history of diverticulitis, DVT (on coumadin), DM, HTN, hypothyroidism, and gout, who presents to the emergency department with one week of lower abdominal pain with a few days of chills and a "quiver" in her chest. She states she developed lower abdominal pain about a week ago which has been intermittent in severity, but constant. The patient states the abdominal pain felt like her prior experience with diverticulitis and has been adjusting her diet throughout the week with little resolution of her pain. She reports normal bowel movements daily, however, states her abdomen "still feels full" after moving her bowels. She denies hematochezia. She reports experiencing chills and subjective fever for a few days intermittently. She states she has also been experiencing a shaking or quivering inside her chest. She denies chest pain. The patient denies shortness of breath, headache, lightheadedness, and dizziness. The patient denies fever, nausea, vomit, diarrhea and constipation. The patient denies dysuria, frequency, urgency and hematuria. Allergies: NKDA Past surgical history: partial thyroidectomy PCP - Dr. Redmond Past History - Past Medical History Allergies/Adverse Reactions: Allergies Allergy/AdvReac Type Severity Reaction Status Date / Time No Known Allergies Allergy Verified 09/29/18 10:01 Home Medications: Ambulatory Orders Allopurinol [Zyloprim -] 100 mg PO DAILY 07/04/15 Levothyroxine [Synthroid -] 125 mcg PO DAILY 07/04/15 Lisinopril [Prinivil -] 20 mg PO BID 07/04/15 Nebivolol HCl [Bystolic] 10 mg PO DAILY 07/04/15 Sitagliptin Phosphate [Januvia] 100 mg PO DAILY 07/04/15 Warfarin Na [Coumadin -] 10 mg PO DAILY 07/04/15 metFORMIN HCL [Metformin ER Osmotic] 500 mg PO DAILY 07/04/15 Methocarbamol [Robaxin -] 500 mg PO TID PRN #21 tablet 11/26/16 Famotidine 20 mg PO BID #16 tablet 06/08/18 Famotidine [Pepcid -] 20 mg PO BID #14 tablet 06/09/18 Ciprofloxacin [Cipro -] 500 mg PO Q12H #14 tablet 09/29/18 metroNIDAZOLE [Flagyl -] 250 mg PO TID #21 tablet 09/29/18 Anemia: No Asthma: No Cancer: No Cardiac Disorders: Yes CVA: No COPD: Yes CHF: No DVT: Yes Dementia: No Diabetes: Yes GI Disorders: Yes (DIVERTICULITIS) Disorders: No HTN: Yes Hypercholesterolemia: Yes Liver Disease: No Seizures: No Thyroid Disease: Yes (HYPOTHYROID) Lung CA: (BI-LATERAL LUNG NODULES) - Surgical History Abdominal Surgery: No Appendectomy: No Cardiac Surgery: No Cholecystectomy: No Lung Surgery: (BILAT LUNG NODULES) Neurologic Surgery: No Orthopedic Surgery: No - Immunization History Immunization Up to Date: Yes - Suicide/Smoking/Psychosocial Hx Smoking History: Former smoker Have you smoked in the past 12 months: No If you are a former smoker, when did you quit?: 35 years ago Information on smoking cessation initiated: No Hx Alcohol Use: No Drug/Substance Use Hx: No Substance Use Type: None Hx Substance Use Treatment: No Review of Systems - Review of Systems Able to Perform ROS?: Yes Comments:: 09/29/18 10:35 GENERAL/CONSTITUTIONAL: (+) chills, subjective fever.No weakness. HEAD, EYES, EARS, NOSE AND THROAT: No change in vision. No ear pain or discharge. No sore throat. CARDIOVASCULAR:(+) chest "quivering". No chest pain or shortness of breath. RESPIRATORY: No cough, wheezing, or hemoptysis. GASTROINTESTINAL: (+) lower abdominal pain. No nausea, vomiting, diarrhea or constipation. GENITOURINARY: No dysuria, frequency, or change in urination. MUSCULOSKELETAL: No joint or muscle swelling or pain. No neck or back pain. SKIN: No rash NEUROLOGIC: No headache, vertigo, loss of consciousness, or change in strength/ sensation. ENDOCRINE: No increased thirst. No abnormal weight change. HEMATOLOGIC/LYMPHATIC: No anemia, easy bleeding, or history of blood clots. ALLERGIC/IMMUNOLOGIC: No hives or skin allergy. *Physical Exam - Vital Signs Last Vital Signs Temp Pulse Resp BP Pulse Ox 98.9 F 64 16 166/68 100 09/29/18 09:58 09/29/18 09:58 09/29/18 09:58 09/29/18 09:58 09/29/18 09:58 - Physical Exam Comments: 09/29/18 10:36 GENERAL: Awake, alert, and fully oriented, in no acute distress HEAD: No signs of trauma EYES: PERRLA, EOMI, sclera anicteric, conjunctiva clear ENT: Auricles normal inspection, hearing grossly normal, nares patent, oropharynx clear without exudates. Moist mucosa NECK: Normal ROM, supple, no lymphadenopathy, JVD, or masses LUNGS: Breath sounds equal, clear to auscultation bilaterally. No wheezes, and no crackles HEART: Regular rate and rhythm, normal S1 and S2, no murmurs, rubs or gallops ABDOMEN: (+) diffuse abomdinal tenderness. Soft, normoactive bowel sounds. No guarding, no rebound. No masses EXTREMITIES: Normal range of motion, no edema. No clubbing or cyanosis. No cords, erythema, or tenderness NEUROLOGICAL: Cranial nerves II through XII grossly intact. Normal speech, normal gait SKIN: Warm, Dry, normal turgor, no rashes or lesions noted. ED Treatment Course - LABORATORY CBC & Chemistry Diagram: 09/29/18 11:15 09/29/18 11:15 - ADDITIONAL ORDERS Additional order review: 09/29/18 11:15 RBC 4.88 MCV 80.4 MCHC 32.6 RDW 15.3 MPV 7.3 L Neutrophils % 49.9 Lymphocytes % 38.1 D Monocytes % 9.4 Eosinophils % 1.9 Basophils % 0.7 - RADIOLOGY Radiology Studies Ordered: Category Date Time Status ABDOMEN & PELVIS CT W/O CONTR [CT] Stat CT Scan 09/29/18 10:49 Ordered Medical Decision Making - Medical Decision Making 09/29/18 11:54 Pt presents to the ED complaining of diffuse abdominal pain, and chills. History of diverticulitis in the past. Abodomen with mild diffuse tenderness. Will check labs and CT abdomen pelvis. Will likely discharge home if CT is negative. 09/29/18 13:16 Ct shows diverticulitis, but patient is well appearing, afebrile and tolerating PO. Will discharge home with rx for cipro and flagyl. *DC/Admit/Observation/Transfer Diagnosis at time of Disposition: Diverticulitis - Discharge Dispostion Disposition: HOME Condition at time of disposition: Good Decision to Admit order: No - Prescriptions Prescriptions: Ciprofloxacin [Cipro -] 500 mg PO Q12H #14 tablet metroNIDAZOLE [Flagyl -] 250 mg PO TID #21 tablet - Referrals Referrals: Mehdi Redmond MD [Primary Care Provider] - - Patient Instructions Printed Discharge Instructions: DI for Diverticulitis Additional Instructions: You came to the ED complaining of abdominal pain and constipation. We found diverticulitis on your cat scan. This is an infection of the large intestine that will likely go away with antibiotics. You should return to the ED for fever, nausea or vomiting, severe pain, other new or worsening symptoms. Be sure to take the antibiotics until they are all gone. Make sure that you keep your appointment with Dr. Chong. - Post Discharge Activity
[2018-09-29] MEDS ORDERED: metroNIDAZOLE 250 MG TABLET PO ONE (13:23)
[2018-09-29] MEDS ORDERED: CIPROFLOXACIN 500 MG TABLET (RESTRICTED TO ID) PO ONE (13:23)
[2018-09-29] MEDS ORDERED: metroNIDAZOLE 250 MG TABLET ONE (13:30)
[2018-09-29 14:20] VITALS: BP 150/80; PULSE 70; TEMP 98.2
--- NOTE | 2018-09-30 15:02 | EKG ---
Test Reason : Blood Pressure : / mmHG Vent. Rate : 051 BPM Atrial Rate : 051 BPM P-R Int : 200 ms QRS Dur : 090 ms QT Int : 422 ms P-R-T Axes : 051 005 -01 degrees QTc Int : 388 ms SINUS BRADYCARDIA MINIMAL VOLTAGE CRITERIA FOR LVH, MAY BE NORMAL VARIANT NONSPECIFIC ST ABNORMALITY WHEN COMPARED WITH ECG OF 08-JUN-2018 17:16, NO SIGNIFICANT CHANGE WAS FOUND Confirmed by GEN BARRIOS MD ([id number]) on 09/30/2018 3:02:06 PM Referred By: Confirmed By:GEN BARRIOS MD
== END 2018-09-29 14:37 | disposition home or self-care (01) ==
LOC: JER 09:23
DX: K57.32 Diverticulitis of large intestine without perforation or abscess without bleeding (principal); I10 Essential (primary) hypertension; E11.9 Type 2 diabetes mellitus without complications; E03.9 Hypothyroidism, unspecified; Z86.718 Personal history of other venous thrombosis and embolism; Z79.01 Long term (current) use of anticoagulants; Z79.84 Long term (current) use of oral hypoglycemic drugs
CPT/HCPCS: 36415; 74176-TC; 80053; 83690; 85025; 93005; 93010; 99282-25

== ENCOUNTER 2019-01-12 07:16 | Day surgery (SDC) | payer OTHER ==
[2019-01-11 14:32] VITALS: BMI 37.4
[2019-01-12 08:30] LABS: INR 1.12 (0.83-1.09); PROTHROMBIN TIME (PATIENT) 13.2 SEC (9.7-13.0)
[2019-01-12 09:54] VITALS: TEMP 97.8
[2019-01-12 12:28] VITALS: BP 176/82; PULSE 54
== END 2019-01-12 11:15 | disposition home or self-care (01) ==
LOC: JASU-ENDO 07:16
PROVIDERS: ATTEND Internal Medicine Gastroenterology
PROC: 0DBM8ZX Excision of Descending Colon, Via Natural or Artificial Opening Endoscopic, Diagnostic (ICD-10-PCS; 2019-01-12)
PROC: 0DBN8ZX Excision of Sigmoid Colon, Via Natural or Artificial Opening Endoscopic, Diagnostic (ICD-10-PCS; 2019-01-12)
PROC: 0DB68ZX Excision of Stomach, Via Natural or Artificial Opening Endoscopic, Diagnostic (ICD-10-PCS; principal; 2019-01-12 09:00)
DX: Z12.11 Encounter for screening for malignant neoplasm of colon (principal); K57.30 Diverticulosis of large intestine without perforation or abscess without bleeding; D12.4 Benign neoplasm of descending colon; D12.5 Benign neoplasm of sigmoid colon; K64.8 Other hemorrhoids; K29.70 Gastritis, unspecified, without bleeding
CPT/HCPCS: 36415; 85610; 88305-TC; 88342-TC

== ENCOUNTER 2020-08-13 15:05 | Emergency (ER) | payer OTHER ==
[2020-08-13 15:40] VITALS: BMI 37.4
[2020-08-13] MEDS ORDERED: LIDOCAINE 5% TOPICAL PATCH TP ONE (16:49)
[2020-08-13] MEDS ORDERED: ACETAMINOPHEN 325 MG TABLET (FP) PO ONE (16:49)
[2020-08-13] MEDS ORDERED: ACETAMINOPHEN 325 MG TABLET (FP) ONE ×2 (17:02→17:42)
[2020-08-13] MEDS ORDERED: LIDOCAINE 5% TOPICAL PATCH ONE (17:03)
[2020-08-13 18:03] LABS: BASO % 0.5 % (0-2.0); EOS % 1.9 % (0-4.5); HEMATOCRIT 40.3 % (32.4-45.2); HEMOGLOBIN 12.9 GM/dL (10.7-15.3); LYMPH % 35.3 % (8-40); MCH 25.8 pg (25.7-33.7); MCHC 32.1 g/dl (32.0-36.0); MEAN CELL VOLUME 80.4 fl (80-96); MEAN PLT VOLUME 7.7 fl (7.5-11.1); MONO % 8.2 % (3.8-10.2); NEUT % 54.1 % (42.8-82.8); PLATELET COUNT 240 K/MM3 (134-434); RBC 5.01 M/mm3 (3.60-5.2); RDW 15.5 % (11.6-15.6); WHITE BLOOD COUNT 7.8 K/mm3 (4.0-10.0)
[2020-08-13 18:10] LABS: PROTHROMBIN TIME (PATIENT) 24.1 SEC (9.7-13.0)
[2020-08-13 18:12] LABS: ACTIVATED PTT 40.2 SECONDS (25.2-36.5)
[2020-08-13 18:29] LABS: POTASSIUM 3.9 mmol/L (3.5-5.1)
[2020-08-13 18:31] LABS: CALCIUM 9.6 mg/dL (8.5-10.1)
[2020-08-13 18:32] LABS: ALBUMIN 3.9 g/dl (3.4-5.0); BLOOD UREA NITROGEN 18.1 mg/dL (7-18)
[2020-08-13 18:35] LABS: URIC ACID 5.3 mg/dL (2.6-7.2)
[2020-08-13 18:37] LABS: BILIRUBIN,TOTAL 0.2 mg/dL (0.2-1); TOT PROT 7.6 g/dl (6.4-8.2)
[2020-08-13 19:21] VITALS: TEMP 98.9
[2020-08-13 19:22] VITALS: BP 140/86; PULSE 87
[2020-08-13] MEDS ORDERED: LIDOCAINE PATCH REMOVAL MC ONE (22:00)
== END 2020-08-13 19:22 | disposition home or self-care (01) ==
LOC: JER 15:05
DX: R07.81 Pleurodynia (principal); S60.221A Contusion of right hand, initial encounter
CPT/HCPCS: 36415; 71046-TC-FY; 71101-TC-RT-FY; 73130-TC-RT-FY; 80053; 84550; 85025; 85610; 85730; 99285-25

== ENCOUNTER 2020-12-23 20:11 | Emergency (ER) | payer OTHER ==
[2020-12-23 20:22] VITALS: BP 182/100; PULSE 72; TEMP 98.2; BMI 37.4
== END 2020-12-23 21:56 | disposition home or self-care (01) ==
LOC: JER 20:11
DX: L03.012 Cellulitis of left finger (principal)
CPT/HCPCS: 99281-25

== ENCOUNTER 2022-03-05 09:22 | Emergency (ER) | payer OTHER ==
[2022-03-05 09:40] VITALS: BP 186/90; PULSE 60; RESP 18; TEMP 98.3; BMI 37.4
== END 2022-03-05 10:35 | disposition home or self-care (01) ==
LOC: JERFT 09:22
DX: M79.674 Pain in right toe(s) (principal)
CPT/HCPCS: 99281-25

== ENCOUNTER 2023-04-29 10:11 | Emergency (ER) | payer OTHER ==
[2023-04-29 10:29] VITALS: BMI 35.5
[2023-04-29] MEDS ORDERED: ACETAMINOPHEN 1000 MG/100 ML BAG IVPB ONE (11:01)
[2023-04-29] MEDS ORDERED: SODIUM CHLORIDE 0.9% 500 ML INFUS.BAG IV ONE (11:07)
[2023-04-29] MEDS ORDERED: ACETAMINOPHEN INJECTION 100 ML IVPB ONE (11:21)
[2023-04-29 11:29] LABS: BASO % 0.8 % (0-2.0); EOS % 1.8 % (0-4.5); HEMATOCRIT 38.9 % (32.4-45.2); HEMOGLOBIN 12.5 GM/dL (10.7-15.3); LYMPH % 33.4 % (8-40); MCH 26.2 pg (25.7-33.7); MCHC 32.3 g/dl (32.0-36.0); MEAN PLT VOLUME 7.2 fl (7.5-11.1); MONO % 8.9 % (3.8-10.2); NEUT % 55.1 % (42.8-82.8); PLATELET COUNT 276 10^3/uL (134-434); RDW 15.5 % (11.6-15.6); WHITE BLOOD COUNT 7.1 K/mm3 (4.0-10.0)
[2023-04-29 11:39] LABS: INR 2.25 (0.83-1.09); PROTHROMBIN TIME (PATIENT) 25.9 SEC (9.7-13.0)
[2023-04-29 11:41] LABS: ACTIVATED PTT 39.8 SECONDS (25.2-36.5)
[2023-04-29 11:46] LABS: POTASSIUM 3.8 mmol/L (3.5-5.1)
[2023-04-29 11:48] LABS: CALCIUM 8.8 mg/dL (8.5-10.1)
[2023-04-29 11:49] LABS: ALBUMIN 3.5 g/dl (3.4-5.0); BLOOD UREA NITROGEN 12.4 mg/dL (7-18)
[2023-04-29 11:53] LABS: BILIRUBIN,TOTAL 0.3 mg/dL (0.2-1)
[2023-04-29 11:54] LABS: CREATININE 0.7 mg/dL (0.55-1.3)
[2023-04-29 11:59] LABS: TOT PROT 7.2 g/dl (6.4-8.2)
[2023-04-29 12:26] LABS: PH,URINE 5.5 (5.0-8.0); URINE APPEARANCE CLEAR; URINE BILIRUBIN NEGATIVE (NEGATIVE); URINE COLOR YELLOW; URINE GLUCOSE (UA) NEGATIVE (NEGATIVE); URINE KETONE NEGATIVE (NEGATIVE); URINE LEUK ESTERASE NEGATIVE (NEGATIVE); URINE NITRITE NEGATIVE (NEGATIVE); URINE PROTEIN NEGATIVE (NEGATIVE); URINE UROBILINOGEN 0.2 mg/dL (0.2-1.0)
[2023-04-29 13:48] VITALS: RESP 20; TEMP 97.7
[2023-04-29 15:29] VITALS: BP 177/99; PULSE 65
== END 2023-04-29 15:30 | disposition home or self-care (01) ==
LOC: JER 10:11
PROC: 3E033NZ Introduction of Analgesics, Hypnotics, Sedatives into Peripheral Vein, Percutaneous Approach (ICD-10-PCS; principal; 2023-04-29)
DX: R10.31 Right lower quadrant pain (principal); R19.7 Diarrhea, unspecified; M16.9 Osteoarthritis of hip, unspecified
CPT/HCPCS: 36415; 71045-TC-FY; 74176-TC; 80053; 81003; 83690; 84484; 85025; 85610; 85730; 87086; 93005; 93010; 99285-25